=== PATIENT | female | born 1975 | race Caucasian/White ===

== ENCOUNTER → 2016-10-12 | Outpatient (CLI) | payer OTHER | END | disposition short-term general hospital (02) | LOC: CLORTH 08:39 | DX: S43.431A Superior glenoid labrum lesion of right shoulder, initial encounter (principal); M25.311 Other instability, right shoulder; Z87.39 Personal history of other diseases of the musculoskeletal system and connective tissue; Z98.890 Other specified postprocedural states ==

== ENCOUNTER 2016-11-23 06:13 | Day surgery (SDC) | payer OTHER ==
[~2016-11-23] VITALS: Ht 160 cm; Wt 72.6 kg
== END 2016-11-23 12:15 | disposition short-term general hospital (02) ==
LOC: SURGOP 06:13
PROC: 0RQJ4ZZ Repair Right Shoulder Joint, Percutaneous Endoscopic Approach (ICD-10-PCS; principal; 2016-11-23)
DX: M25.311 Other instability, right shoulder (principal); M06.9 Rheumatoid arthritis, unspecified; Z88.5 Allergy status to narcotic agent; Z88.8 Allergy status to other drugs, medicaments and biological substances; Z79.899 Other long term (current) drug therapy; Z98.890 Other specified postprocedural states
CPT/HCPCS: J0171; J0690; J1720; J2250; J2270; J2405; J2710; J2795; J3010